=== PATIENT | female | born 1985 | race Two or more races ===

== ENCOUNTER 2020-09-07 14:54 | Emergency (ER) | payer OTHER ==
[~2020-09-07] VITALS: Ht 152.4 cm; Wt 74.0 kg
[2020-09-07 15:47] LABS: BASOPHILS % 0.6 % (0.0-2.0); HEMATOCRIT. 36.7 % (36.0-48.0); HEMOGLOBIN. 12.2 g/dL (12.0-16.0); LYMPHOCYTES % 27.9 % (20.0-50.0); MEAN CORPUSCULAR HEMOGLOBIN 29.4 pg (28.0-32.0); MEAN CORPUSCULAR VOLUME 88.9 fL (81.0-99.0); MEAN PLATELET VOLUME 7.2 fl (7.4-10.4); MONOCYTES % 7.9 % (2.0-8.0); NEUTROPHILS % 60.6 % (40.0-76.0); PLATELET 225 x1000/uL (130-400); RED BLOOD CELL COUNT 4.13 mill/uL (4.2-5.4); RED CELL DISTRIBUTION WIDTH 17.6 % (11.6-14.6)
[2020-09-07 15:55] LABS: CHLORIDE 104 mEq/L (98-107)
[2020-09-07 15:59] LABS: PROTHROMBIN TIME 10.9 sec (9.6-11.0)
[2020-09-07] MEDS ORDERED: INSULIN REGULAR (HUMULIN R) 300UNITS/3ML VIAL IV ONE (16:15)
[2020-09-07] MEDS ORDERED: SODIUM POLYSTYRENE SULFONATE 15 G/60 ML BOT PO ONE (16:15)
[2020-09-07] MEDS ORDERED: DEXTROSE 50% WATER 50ML SYRINGE IV ONE (16:15)
[2020-09-07 17:55] VITALS: BP 118/64
== END 2020-09-07 18:04 | disposition home or self-care (01) ==
LOC: ER 14:54
DX: R18.8 Other ascites (principal); K76.89 Other specified diseases of liver; Z88.1 Allergy status to other antibiotic agents; Z98.890 Other specified postprocedural states
CPT/HCPCS: 36415; 71045; 80053; 82962; 85025; 85610; 96374; 96375; 99284; J1815

== ENCOUNTER 2020-09-08 06:38 | Emergency (ER) | payer OTHER ==
[~2020-09-08] VITALS: Ht 152.4 cm; Wt 74.0 kg
[2020-09-08 07:48] LABS: BASOPHILS % 0.7 % (0.0-2.0); EOSINOPHILS % 3.2 % (0.0-5.0); HEMATOCRIT. 39.3 % (36.0-48.0); HEMOGLOBIN. 13.1 g/dL (12.0-16.0); LYMPHOCYTES % 23.2 % (20.0-50.0); MEAN CORPUSCULAR HEMOGLOBIN 29.6 pg (28.0-32.0); MEAN CORPUSCULAR VOLUME 89.2 fL (81.0-99.0); MEAN PLATELET VOLUME 7.2 fl (7.4-10.4); MONOCYTES % 6.2 % (2.0-8.0); NEUTROPHILS % 66.7 % (40.0-76.0); PLATELET 238 x1000/uL (130-400); RED CELL DISTRIBUTION WIDTH 17.7 % (11.6-14.6)
[2020-09-08 07:51] LABS: CHLORIDE 102 mEq/L (98-107)
[2020-09-08 08:27] LABS: PROTHROMBIN TIME 10.5 sec (9.6-11.0)
[2020-09-08 11:00] VITALS: BP 115/72
== END 2020-09-08 11:10 | disposition left against medical advice (07) ==
LOC: ER 06:38
DX: T82.49XA Other complication of vascular dialysis catheter, initial encounter (principal); I12.0 Hypertensive chronic kidney disease with stage 5 chronic kidney disease or end stage renal disease; N18.6 End stage renal disease; Y82.8 Other medical devices associated with adverse incidents; Y92.89 Other specified places as the place of occurrence of the external cause; Z99.2 Dependence on renal dialysis; Z88.3 Allergy status to other anti-infective agents
CPT/HCPCS: 36415; 76937; 80053; 85025; 85610; 93005; 99284; C1752

== ENCOUNTER 2020-09-10 13:15 | Emergency (ER) | payer OTHER ==
[~2020-09-10] VITALS: Ht 165.1 cm; Wt 56.0 kg
[2020-09-10 13:16] VITALS: BP 116/71
== END 2020-09-10 15:47 | disposition home or self-care (01) ==
LOC: ER 13:15
DX: T82.868A Thrombosis due to vascular prosthetic devices, implants and grafts, initial encounter (principal); N18.6 End stage renal disease; Z99.2 Dependence on renal dialysis; Y82.8 Other medical devices associated with adverse incidents; Y92.89 Other specified places as the place of occurrence of the external cause
CPT/HCPCS: 99281